=== PATIENT | male | born 1975 | race Caucasian/White ===

== ENCOUNTER 2024-07-25 05:39 | Day surgery (SDC) | payer BC ==
[~2024-07-25 05:39] MED LIST: CEPH500 PO; Lamisil At24 GM TOP; Nix Lice Treatm59 ML TOP; Percocet 5-3251 EACH PO; Prednisone20 MG PO; [UNRECOGNIZED DRUG - OTHER]; [UNRECOGNIZED DRUG - REMARK]
== END 2024-07-25 23:00 | disposition home or self-care (01) ==
LOC: WOUND 05:39
DX: L03.011 Cellulitis of right finger (principal); S61.200D Unspecified open wound of right index finger without damage to nail, subsequent encounter; X58.XXXD Exposure to other specified factors, subsequent encounter
CPT/HCPCS: G0463

== ENCOUNTER 2024-07-27 22:05 | Emergency (ER) | payer OTHER, BC ==
[~2024-07-27] VITALS: Ht 175.3 cm; Wt 90.7 kg
== END 2024-07-27 22:31 | disposition home or self-care (01) ==
LOC: ER 22:05
DX: S01.511A Laceration without foreign body of lip, initial encounter (principal); F17.200 Nicotine dependence, unspecified, uncomplicated; W01.0XXA Fall on same level from slipping, tripping and stumbling without subsequent striking against object, initial encounter; Z79.52 Long term (current) use of systemic steroids; Z79.899 Other long term (current) drug therapy; Z88.8 Allergy status to other drugs, medicaments and biological substances
CPT/HCPCS: 12013; 99282-25